=== PATIENT | male | born 1995 | race African-American/Black ===

== ENCOUNTER 2022-09-11 14:35 | Inpatient (IN) | payer OTHER ==
[~2022-09-11] VITALS: Ht 167.6 cm; Wt 74.0 kg
[2022-09-11] MEDS ORDERED: [UNRECOGNIZED DRUG - CODE] PR (15:13)
[2022-09-11] MEDS ORDERED: EXCETAB22 PO (15:15)
[2022-09-11 16:14] LABS: HEMATOCRIT 45.3 % (42.0-52.0); HEMOGLOBIN 14.4 g/dl (13.5-17.5); MEAN CORPUSCULAR HGB CONC 31.8 g/dl (32.0-36.5); MEAN CORPUSCULAR VOLUME 84.8 fl (80.0-96.0); PLATELET COUNT, AUTOMATED 211 10^3/uL (150-450); RED BLOOD COUNT 5.34 10^6/uL (4.30-6.10); WHITE BLOOD COUNT 7.8 10^3/uL (4.0-10.0)
[2022-09-11 16:17] LABS: AMPHETAMINES LEVEL URINE NEGATIVE (NEGATIVE); BARBITURATES URINE NEGATIVE (NEGATIVE); BENZODIAZEPINES URINE NEGATIVE (NEGATIVE); CANNABINOIDS URINE NEGATIVE (NEGATIVE); COCAINE METABOLITE URINE NEGATIVE (NEGATIVE); METHADONE URINE NEGATIVE (NEGATIVE); OPIATES URINE NEGATIVE (NEGATIVE); PHENCYCLIDINE URINE NEGATIVE (NEGATIVE)
[2022-09-11 16:18] LABS: ETHYL ALCOHOL (ETHANOL) 0.003 % (0.000-0.010)
[2022-09-11 16:20] LABS: ACETAMINOPHEN LEVEL < 2.0 UG/ML (10.0-20.0); ALKALINE PHOSPHATASE 64 U/L (46-116); ALT/SGPT 56 U/L (7.0-40); AST/SGOT < 8 U/L (<34); BILIRUBIN,DIRECT 0.1 MG/DL (<0.4); BILIRUBIN,TOTAL 0.4 MG/DL (0.3-1.2); BLOOD UREA NITROGEN 16 MG/DL (9-23); CALCIUM LEVEL 8.8 MG/DL (8.5-10.1); CARBON DIOXIDE LEVEL 28 MMOL/L (20-31); CHLORIDE LEVEL 106 MMOL/L (98-107); CREATININE FOR GFR 0.97 MG/DL (0.70-1.30); GLOMERULAR FILTRATION RATE > 60.0 (>60); GLUCOSE, FASTING 89 MG/DL (60-100); POTASSIUM SERUM 3.9 MMOL/L (3.5-5.1); SALICYLATE LEVEL < 3.0 MG/DL (<30); SODIUM LEVEL 140 MMOL/L (136-145); TOTAL PROTEIN 6.9 G/DL (5.7-8.2)
[2022-09-11 16:24] LABS: THYROID STIMULATING HORMONE 0.544 uIU/ML (0.55-4.78)
[2022-09-11] MEDS ORDERED: HOME MED LIST COMPLETE! XX SCH (18:30)
[2022-09-11] MEDS ORDERED: VENTAER INH (18:30)
[2022-09-11] MEDS ORDERED: MAALOX 30 ML SUSP *UDC PO PRN (19:45)
[2022-09-11] MEDS ORDERED: MOM 30ML SUSPENSION UDC PO PRN (19:45)
[2022-09-11] MEDS ORDERED: ACETAMINOPHEN TAB 650MG DOSE (2X325MG) PO PRN (19:45)
[2022-09-11 22:58] VITALS: BP 119/62; TEMP 97.3; O2SAT 100
[2022-09-12 06:16] VITALS: BP 132/80; TEMP 98; O2SAT 100
[2022-09-12 08:40] LABS: FREE T4 0.98 NG/DL (0.89-1.76)
[2022-09-12] MEDS ORDERED: ALBUTEROL 90 MCG/ACT 8GM HFA INHALER INH PRN (11:45)
[2022-09-12] MEDS ORDERED: PREPARATION H OINTMENT (HEMORRHOID) PR PRN (11:45)
[2022-09-12 18:00] VITALS: BP 143/81; TEMP 97.3
[2022-09-13 06:09] VITALS: BP 115/65; TEMP 97.8; O2SAT 100
[2022-09-13 18:00] VITALS: BP 132/80; TEMP 98.2
[2022-09-13] MEDS: traZODone 50 MG TAB PO PRN (22:58)
[2022-09-14 06:18] VITALS: BP 132/70; TEMP 97.3; O2SAT 100
[2022-09-14] MEDS: SERTRALINE HCL 25 MG TABLET PO SCH (11:42)
[2022-09-14 16:40] VITALS: BP 138/72; TEMP 97.8; O2SAT 100
[2022-09-14] MEDS: traZODone 50 MG TAB PO PRN (20:22)
[2022-09-15 06:47] VITALS: BP 125/65; TEMP 97.9; O2SAT 100
[2022-09-15] MEDS: SERTRALINE HCL 25 MG TABLET PO SCH (09:30)
[2022-09-15 16:13] VITALS: BP 138/86; TEMP 98; O2SAT 100
[2022-09-15] MEDS: traZODone 50 MG TAB PO PRN (23:02)
[2022-09-16 06:23] VITALS: BP 132/57; TEMP 97.5; O2SAT 97
[2022-09-16] MEDS ORDERED: TRAZ-252 PO (08:32)
[2022-09-16] MEDS ORDERED: SERT25TA21 PO (08:32)
[2022-09-16] MEDS: SERTRALINE HCL 25 MG TABLET PO SCH (08:49)
== END 2022-09-16 11:59 | disposition home or self-care (01) | DRG 885 ==
LOC: M ED 14:35 → EDBD 14:35 → M ED INP 19:44 → M PSY 21:10
PROVIDERS: ADMIT Psychiatry & Neurology Psychiatry; ATTEND Student in an Organized Health Care Education/Training Program
DX: F32.2 Major depressive disorder, single episode, severe without psychotic features (principal); R45.851 Suicidal ideations; J45.909 Unspecified asthma, uncomplicated; K64.9 Unspecified hemorrhoids; D50.9 Iron deficiency anemia, unspecified; E05.90 Thyrotoxicosis, unspecified without thyrotoxic crisis or storm; Z91.013 Allergy to seafood; Z56.6 Other physical and mental strain related to work

== ENCOUNTER 2022-09-20 16:57 | Inpatient (IN) | payer OTHER ==
[~2022-09-20] VITALS: Ht 175.3 cm; Wt 80.1 kg
[~2022-09-20 16:57] MED LIST: EXCETAB22 PO; SERT25TA21 PO; TRAZ-252 PO; VENTAER INH; [UNRECOGNIZED DRUG - CODE] PR
[2022-09-20 18:46] LABS: HEMATOCRIT 43.1 % (42.0-52.0); HEMOGLOBIN 14.2 g/dl (13.5-17.5); MEAN CORPUSCULAR HEMOGLOBIN 27.4 pg (27.0-33.0); MEAN CORPUSCULAR HGB CONC 32.9 g/dl (32.0-36.5); MEAN CORPUSCULAR VOLUME 83.2 fl (80.0-96.0); PLATELET COUNT, AUTOMATED 181 10^3/uL (150-450); RED BLOOD COUNT 5.18 10^6/uL (4.30-6.10); WHITE BLOOD COUNT 7.7 10^3/uL (4.0-10.0)
[2022-09-20] MEDS ORDERED: POLY510P14 PO (19:17)
[2022-09-20 19:18] LABS: ETHYL ALCOHOL (ETHANOL) < 0.003 % (0.000-0.010); HCG, SERUM QUALITATIVE NEGATIVE
[2022-09-20 19:20] LABS: ACETAMINOPHEN LEVEL < 2.0 UG/ML (10.0-20.0); ALBUMIN 3.7 G/DL (3.2-5.2); ALKALINE PHOSPHATASE 58 U/L (46-116); ALT/SGPT 46 U/L (7.0-40); AST/SGOT 20 U/L (<34); BILIRUBIN,DIRECT 0.1 MG/DL (<0.4); BILIRUBIN,TOTAL 0.3 MG/DL (0.3-1.2); BLOOD UREA NITROGEN 20 MG/DL (9-23); CALCIUM LEVEL 9.2 MG/DL (8.5-10.1); CARBON DIOXIDE LEVEL 29 MMOL/L (20-31); CHLORIDE LEVEL 105 MMOL/L (98-107); CREATININE FOR GFR 1.09 MG/DL (0.70-1.30); GLOMERULAR FILTRATION RATE > 60.0 (>60); GLUCOSE, FASTING 107 MG/DL (60-100); SALICYLATE LEVEL < 3.0 MG/DL (<30); SODIUM LEVEL 140 MMOL/L (136-145); TOTAL PROTEIN 6.5 G/DL (5.7-8.2)
[2022-09-20] MEDS ORDERED: HOME MED LIST COMPLETE! XX SCH (19:20)
[2022-09-20 19:22] LABS: THYROID STIMULATING HORMONE 0.541 uIU/ML (0.55-4.78)
[2022-09-20] MEDS ORDERED: MOM 30ML SUSPENSION UDC PO PRN (21:45)
[2022-09-20] MEDS ORDERED: OLANZapine ORAL DISINTEGRATING TAB 5MG PO PRN (21:45)
[2022-09-20] MEDS ORDERED: ACETAMINOPHEN TAB 650MG DOSE (2X325MG) PO PRN (21:45)
[2022-09-20] MEDS ORDERED: NICOTINE 21MG/24HR 1 EA TRANSDERMAL TD PRN (21:45)
[2022-09-20] MEDS ORDERED: MAALOX 30 ML SUSP *UDC PO PRN (21:45)
[2022-09-20] MEDS ORDERED: IBUPROFEN 400MG TAB PO PRN (21:45)
[2022-09-20] MEDS ORDERED: diphenhydrAMINE 25MG CAP PO PRN (21:45)
[2022-09-20 23:29] LABS: AMPHETAMINES LEVEL URINE NEGATIVE (NEGATIVE); BARBITURATES URINE NEGATIVE (NEGATIVE); BENZODIAZEPINES URINE NEGATIVE (NEGATIVE); COCAINE METABOLITE URINE NEGATIVE (NEGATIVE); METHADONE URINE NEGATIVE (NEGATIVE); OPIATES URINE NEGATIVE (NEGATIVE); PHENCYCLIDINE URINE NEGATIVE (NEGATIVE)
[2022-09-20 23:30] LABS: CANNABINOIDS URINE NEGATIVE (NEGATIVE)
[2022-09-21 00:36] VITALS: BP 136/63; TEMP 97.8; O2SAT 97
[2022-09-21 06:28] VITALS: BP 145/79; TEMP 98; O2SAT 99
[2022-09-21] MEDS: SERTRALINE HCL 50 MG TAB PO SCH (10:48)
[2022-09-21] MEDS ORDERED: PREPARATION H OINTMENT (HEMORRHOID) TOP PRN (11:15)
[2022-09-21] MEDS ORDERED: ALBUTEROL 90 MCG/ACT 8GM HFA INHALER INH PRN (11:15)
[2022-09-21] MEDS ORDERED: ANUSOL HC CREAM 30GM TOP PRN (11:45)
[2022-09-21 18:00] VITALS: BP 146/84; TEMP 97.4; O2SAT 100
[2022-09-21] MEDS: traZODone 50 MG TAB PO PRN (20:03)
[2022-09-22 06:13] VITALS: BP 123/58; TEMP 98.9; O2SAT 100
[2022-09-22] MEDS: SERTRALINE HCL 50 MG TAB PO SCH (08:58)
[2022-09-22 17:49] VITALS: BP 150/89; TEMP 97.3
[2022-09-22] MEDS: traZODone 50 MG TAB PO PRN (21:11)
[2022-09-23 06:13] VITALS: BP 128/56; TEMP 98.2; O2SAT 100
[2022-09-23] MEDS: SERTRALINE HCL 50 MG TAB PO SCH (08:16)
[2022-09-23 18:09] VITALS: BP 146/85; TEMP 97.2
[2022-09-23] MEDS: traZODone 50 MG TAB PO PRN (20:10)
[2022-09-24 06:49] VITALS: BP 142/68; TEMP 98.4; O2SAT 100
[2022-09-24] MEDS ORDERED: SERT50TA29 PO (08:42)
[2022-09-24] MEDS: SERTRALINE HCL 50 MG TAB PO SCH (09:27)
== END 2022-09-24 13:13 | disposition home or self-care (01) | DRG 881 ==
LOC: M ED 16:57 → M ED INP 21:44 → M PSY 09-21 00:13
PROVIDERS: ADMIT Psychiatry & Neurology Psychiatry; ATTEND Student in an Organized Health Care Education/Training Program
DX: F32.9 Major depressive disorder, single episode, unspecified (principal); F41.0 Panic disorder [episodic paroxysmal anxiety]; J45.909 Unspecified asthma, uncomplicated; D50.9 Iron deficiency anemia, unspecified; K64.9 Unspecified hemorrhoids; Z79.899 Other long term (current) drug therapy; Z91.013 Allergy to seafood

== ENCOUNTER 2023-01-24 12:43 | Emergency (ER) | payer OTHER ==
[~2023-01-24] VITALS: Ht 175.3 cm; Wt 84.9 kg
[~2023-01-24 12:43] MED LIST changes: +ALBU8.5H INH; +CYCL-707 PO; +DOCU100C16 PO; +FIOR1CAP PO; +HYDR25SU61 PR; +NAPR-885 PO; +POLY510P14 PO; +SERT50TA29 PO; +TRAZ1TAB10 PO
[2023-01-24 12:44] VITALS: BP 128/90; TEMP 97.7; O2SAT 99
[2023-01-25] MEDS ORDERED: METO10TA2 (18:19)
== END 2023-01-24 13:56 | disposition home or self-care (01) ==
LOC: M ED 12:43
DX: K62.5 Hemorrhage of anus and rectum (principal); L29.0 Pruritus ani; D64.9 Anemia, unspecified; J45.909 Unspecified asthma, uncomplicated; Z86.69 Personal history of other diseases of the nervous system and sense organs

== ENCOUNTER 2023-01-25 15:24 | Inpatient (IN) | payer OTHER ==
[~2023-01-25] VITALS: Ht 175.3 cm; Wt 85.0 kg
[2023-01-25 16:52] LABS: HEMATOCRIT 42.5 % (42.0-52.0); HEMOGLOBIN 14.1 g/dl (13.5-17.5); MEAN CORPUSCULAR HEMOGLOBIN 27.8 pg (27.0-33.0); MEAN CORPUSCULAR HGB CONC 33.2 g/dl (32.0-36.5); MEAN CORPUSCULAR VOLUME 83.8 fl (80.0-96.0); PLATELET COUNT, AUTOMATED 243 10^3/uL (150-450); RED BLOOD COUNT 5.07 10^6/uL (4.30-6.10); WHITE BLOOD COUNT 8.6 10^3/uL (4.0-10.0)
[2023-01-25 17:13] LABS: AMPHETAMINES LEVEL URINE NEGATIVE (NEGATIVE)
[2023-01-25 17:14] LABS: BENZODIAZEPINES URINE NEGATIVE (NEGATIVE); CANNABINOIDS URINE NEGATIVE (NEGATIVE); COCAINE METABOLITE URINE NEGATIVE (NEGATIVE); METHADONE URINE NEGATIVE (NEGATIVE); OPIATES URINE NEGATIVE (NEGATIVE); PHENCYCLIDINE URINE NEGATIVE (NEGATIVE)
[2023-01-25 17:16] LABS: ETHYL ALCOHOL (ETHANOL) < 0.003 % (0.000-0.010)
[2023-01-25 17:18] LABS: ALBUMIN 3.9 G/DL (3.2-5.2); ALKALINE PHOSPHATASE 71 U/L (46-116); ALT/SGPT 39 U/L (7.0-40); AST/SGOT 25 U/L (<34); BARBITURATES URINE POSITIVE (NEGATIVE); BILIRUBIN,DIRECT 0.1 MG/DL (<0.4); BILIRUBIN,TOTAL 0.3 MG/DL (0.3-1.2); BLOOD UREA NITROGEN 17 MG/DL (9-23); CALCIUM LEVEL 9.3 MG/DL (8.5-10.1); CARBON DIOXIDE LEVEL 28 MMOL/L (20-31); CHLORIDE LEVEL 104 MMOL/L (98-107); CREATININE FOR GFR 0.97 MG/DL (0.70-1.30); GLOMERULAR FILTRATION RATE > 60.0 (>60); GLUCOSE, FASTING 87 MG/DL (60-100); POTASSIUM SERUM 4.2 MMOL/L (3.5-5.1); SALICYLATE LEVEL < 3.0 MG/DL (<30); SODIUM LEVEL 140 MMOL/L (136-145); TOTAL PROTEIN 7.1 G/DL (5.7-8.2)
[2023-01-25 17:20] LABS: THYROID STIMULATING HORMONE 0.822 uIU/ML (0.55-4.78)
[2023-01-25] MEDS ORDERED: METO10TA2 (18:19)
[2023-01-25] MEDS ORDERED: NAPROXEN 250 MG TAB PO PRN (18:45)
[2023-01-26] MEDS ORDERED: ESGI1TAB PO (00:10)
[2023-01-26] MEDS ORDERED: METO10TA2 PO (00:10)
[2023-01-26] MEDS ORDERED: PROC1AER16 PR (00:10)
[2023-01-26] MEDS ORDERED: HOME MED LIST COMPLETE! XX SCH (00:20)
[2023-01-26] MEDS ORDERED: DOCUSATE SODIUM 100MG CAPSULE PO SCH (09:00)
[2023-01-26] MEDS ORDERED: traZODone 50 MG TAB PO PRN (09:15)
[2023-01-26] MEDS ORDERED: CYCLOBENZAPRINE 10MG TABLET PO PRN (09:15)
[2023-01-26] MEDS ORDERED: MOM 30ML SUSPENSION UDC PO PRN (14:10)
[2023-01-26] MEDS ORDERED: ACETAMINOPHEN TAB 650MG DOSE (2X325MG) PO PRN (14:10)
[2023-01-26] MEDS ORDERED: IBUPROFEN 400MG TAB PO PRN (14:10)
[2023-01-26] MEDS ORDERED: MAALOX 30 ML SUSP *UDC PO PRN (14:10)
[2023-01-26] MEDS ORDERED: diphenhydrAMINE 25MG CAP PO PRN (14:10)
[2023-01-26 14:30] VITALS: BP 140/85; TEMP 98.3; O2SAT 98
[2023-01-26] MEDS ORDERED: METOCLOPRAMIDE 10MG TAB PO PRN (19:55)
[2023-01-26] MEDS ORDERED: ALBUTEROL 90 MCG/ACT 8GM HFA INHALER INH PRN (19:55)
[2023-01-26] MEDS: DOCUSATE SODIUM 100MG CAPSULE PO SCH (22:13)
[2023-01-26] MEDS: CYCLOBENZAPRINE 10MG TABLET PO PRN (22:15)
[2023-01-26] MEDS: traZODone 50 MG TAB PO PRN (22:15)
[2023-01-26] MEDS: NAPROXEN 250 MG TAB PO PRN (22:16)
[2023-01-27 06:23] VITALS: BP 127/90; TEMP 97.7; O2SAT 100
[2023-01-27] MEDS: DOCUSATE SODIUM 100MG CAPSULE PO SCH ×2 (09:24→20:53)
[2023-01-27] MEDS: NAPROXEN 250 MG TAB PO PRN (09:24)
[2023-01-27] MEDS: CYCLOBENZAPRINE 10MG TABLET PO PRN (09:24)
[2023-01-27 16:04] VITALS: BP 143/84; TEMP 98.1; O2SAT 99
[2023-01-27] MEDS: traZODone 50 MG TAB PO PRN (20:53)
[2023-01-28 06:45] VITALS: BP 136/61; TEMP 98.6; O2SAT 99
[2023-01-28] MEDS: DOCUSATE SODIUM 100MG CAPSULE PO SCH ×2 (09:26→20:26)
[2023-01-28] MEDS: CYCLOBENZAPRINE 10MG TABLET PO PRN (09:27)
[2023-01-28] MEDS: NAPROXEN 250 MG TAB PO PRN (09:28)
[2023-01-28 18:24] VITALS: BP 149/83; TEMP 98.4; O2SAT 99
[2023-01-28] MEDS: traZODone 50 MG TAB PO PRN (20:26)
[2023-01-29 06:33] VITALS: BP 145/67; TEMP 98.6; O2SAT 100
[2023-01-29] MEDS: DOCUSATE SODIUM 100MG CAPSULE PO SCH ×2 (09:19→21:34)
[2023-01-29] MEDS: CYCLOBENZAPRINE 10MG TABLET PO PRN ×2 (09:20→19:22)
[2023-01-29] MEDS: NAPROXEN 250 MG TAB PO PRN ×2 (09:21→21:35)
[2023-01-29 16:29] VITALS: BP 140/77; TEMP 97.4; O2SAT 100
[2023-01-29] MEDS: traZODone 50 MG TAB PO PRN (21:34)
[2023-01-30 05:51] VITALS: BP 144/88; TEMP 98.8; O2SAT 100
[2023-01-30] MEDS: DOCUSATE SODIUM 100MG CAPSULE PO SCH ×2 (09:01→21:54)
[2023-01-30] MEDS: NAPROXEN 250 MG TAB PO PRN ×2 (09:03→21:55)
[2023-01-30] MEDS: CYCLOBENZAPRINE 10MG TABLET PO PRN ×2 (09:03→21:54)
[2023-01-30 18:32] VITALS: BP 143/72; TEMP 98.4; O2SAT 97
[2023-01-30] MEDS: traZODone 50 MG TAB PO PRN (21:54)
[2023-01-31] MEDS: CYCLOBENZAPRINE 10MG TABLET PO PRN ×2 (08:47→21:07)
[2023-01-31] MEDS: DOCUSATE SODIUM 100MG CAPSULE PO SCH ×2 (08:47→21:07)
[2023-01-31] MEDS: NAPROXEN 250 MG TAB PO PRN ×2 (08:49→21:08)
[2023-01-31 18:34] VITALS: BP 131/76; TEMP 98.5; O2SAT 100
[2023-02-01 06:28] VITALS: BP 128/61; TEMP 97.1; O2SAT 100
[2023-02-01] MEDS: CYCLOBENZAPRINE 10MG TABLET PO PRN (09:40)
[2023-02-01] MEDS: DOCUSATE SODIUM 100MG CAPSULE PO SCH (09:40)
[2023-02-01] MEDS: NAPROXEN 250 MG TAB PO PRN (09:42)
== END 2023-02-01 10:57 | disposition home or self-care (01) | DRG 885 ==
LOC: M ED 15:24 → M ED INP 01-26 14:06 → M PSY 01-26 14:48
PROVIDERS: ADMIT Student in an Organized Health Care Education/Training Program; ATTEND Student in an Organized Health Care Education/Training Program
DX: F33.9 Major depressive disorder, recurrent, unspecified (principal); R45.850 Homicidal ideations; Z91.013 Allergy to seafood; Z79.899 Other long term (current) drug therapy; J45.909 Unspecified asthma, uncomplicated; D50.9 Iron deficiency anemia, unspecified; K64.8 Other hemorrhoids; M54.50 Low back pain, unspecified

== ENCOUNTER 2023-02-18 11:34 | Emergency (ER) | payer OTHER ==
[~2023-02-18] VITALS: Ht 175.3 cm; Wt 83.1 kg
[~2023-02-18 11:34] MED LIST changes: +ESGI1TAB PO; +METO10TA2; +METO10TA2 PO; +PROC1AER16 PR
[2023-02-18 11:35] VITALS: TEMP 97.9
[2023-02-18] MEDS ORDERED: ACETAMINOPHEN 325 MG TAB PO ONE (17:00)
[2023-02-18 17:35] VITALS: BP 141/78; O2SAT 100
== END 2023-02-18 17:50 | disposition home or self-care (01) ==
LOC: M ED 11:34
DX: S00.90XA Unspecified superficial injury of unspecified part of head, initial encounter (principal); R55 Syncope and collapse; X50.0XXA Overexertion from strenuous movement or load, initial encounter; Y92.39 Other specified sports and athletic area as the place of occurrence of the external cause; Y93.B1 Activity, exercise machines primarily for muscle strengthening; J45.909 Unspecified asthma, uncomplicated; Z79.899 Other long term (current) drug therapy; Z91.013 Allergy to seafood